=== PATIENT | male | born 1960 | race Caucasian/White ===

== ENCOUNTER 2019-04-10 20:16 | Emergency (ER) | payer OTHER ==
[~2019-04-10] VITALS: Ht 185.4 cm; Wt 112.0 kg
--- NOTE | ~2019-04-10 | EKG ---
[place] [address] ELECTROCARDIOGRAM REPORT Name: HENRY FLORES Room: [facility]#: [id number] Admission: 04/10/19 Attend Phys: Discharge: 04/10/19 Date of : 58 Date of Service: 04/10/192019 Report #: [id number] THIS REPORT FOR: cc: JOAQUÍN - No family physician/PCP JOAQUÍN - No family physician/PCP Boris Escalante MD ~ THIS REPORT FOR: //name// [facility] ED Test Date: 2019-04-10 Test Time: 20:20:36 Pat Name: HENRY FLORES Department: Room: Gender: M Licensed Practical Nurse Clinic Nurse: : 1960 Requested By: Karen Montenegro Order Number: [id number] MD: Measurements Intervals [place] Rate: 73 P: 60 NC: 181 QRS: 14 QRSD: 114 T: 21 QT: 412 QTc: 454 Interpretive Statements Sinus rhythm Incomplete right bundle branch block Baseline wander in lead(s) V6 Compared to ECG 01/06/2010 17:52:56 Incomplete right bundle-branch block now present [email or web address] By: 19 19 Epiphany EpiphanyMD /[email or web address]
[~2019-04-10 20:16] MED LIST: AMBIEN 10 MG TA10 MG; RELPAX40 MG; ZPAK PO
[2019-04-10 20:40] LABS: ABSOLUTE EOSINOPHILS 0.1 thou/uL (0.0-0.7); ABSOLUTE LYMPHOCYTES 2.2 thou/uL (0.8-5.3); ABSOLUTE MONOCYTES 0.6 thou/uL (0.0-1.2); ABSOLUTE NEUTROPHILS 6.8 thou/uL (1.6-8.1); BASOPHILS 0.3 %; EOSINOPHILS 1.2 %; HEMOGLOBIN 13.8 gm/dL (14.0-18.0); LYMPHOCYTES 22.9 %; MCH 30.1 pg (26.0-34.0); MCHC 34.5 g/dL (28.0-37.0); MCV 87.3 fL (80.0-100.0); MPV 8.9 fl. (7.2-11.1); NUCLEATED RBCS 0 /100WBC; PLATELET COUNT* 181 thou/uL (150-400); POLYS 69.6 %; RBC 4.58 mil/uL (4.50-6.00); RDW-CV 13.6 % (10.5-14.5); WBC 9.8 thou/uL (4.0-11.0)
[2019-04-10] MEDS ORDERED: IMITREX4 MG/0.51 PO (20:46)
[2019-04-10] MEDS ORDERED: MELOXICAM15 MG PO (20:47)
[2019-04-10 20:49] LABS: CALCIUM 8.5 mg/dL (8.5-10.1); CREATININE 1.3 mg/dL (0.6-1.3); POTASSIUM 4.4 mmol/L (3.5-5.1)
[2019-04-10 20:51] LABS: PROTIME 10.1 Seconds (9.20-11.50)
[2019-04-10 20:53] LABS: ALBUMIN 4.4 g/dL (3.4-5.0); TOTAL BILIRUBIN 0.5 mg/dL (<0.1-1.0); TOTAL PROTEIN 7.6 g/dL (6.4-8.2)
[2019-04-10 23:05] VITALS: BP 118/71
== END 2019-04-10 23:05 | disposition home or self-care (01) ==
LOC: M.ERS 20:16
PROVIDERS: Personal Emergency Response Attendant
DX: R07.89 Other chest pain (principal); G43.909 Migraine, unspecified, not intractable, without status migrainosus; Z90.89 Acquired absence of other organs; Z88.8 Allergy status to other drugs, medicaments and biological substances

== ENCOUNTER → 2019-05-13 | Outpatient (CLI) | payer OTHER ==
[~2019-05-13] MED LIST changes: +IMITREX4 MG/0.51 PO; +MELOXICAM15 MG PO
== END ==
LOC: M.CT 12:25
DX: R07.89 Other chest pain (principal)